=== PATIENT | female | born 1945 | race Two or more races ===

== ENCOUNTER 2020-09-23 06:16 | Day surgery (SDC) | payer OTHER ==
[~2020-09-23 06:16] MED LIST: AMLODIPI PO; ATORVASTATIN CA10 MG PO; DITROPAN XL5 MG PO; ENALAPRIL MALEA20 MG PO; GLIMEPIRIDE1 M1 PO
[2020-09-23] MEDS ORDERED: ULTRACET PO (09:34)
[2020-09-23] MEDS ORDERED: MACROBID 100 M100 MG PO (09:34)
== END 2020-09-23 14:40 | disposition home or self-care (01) ==
LOC: CIR.AMB 06:16
PROVIDERS: ATTEND Obstetrics & Gynecology Gynecology
DX: N81.3 Complete uterovaginal prolapse (principal); Z20.828 Contact with and (suspected) exposure to other viral communicable diseases